=== PATIENT | female | born 1950 | race Caucasian/White ===

== ENCOUNTER → 2019-07-12 09:16 | Outpatient (BNVA) | payer MEDICARE, SELFPAY | PROVIDERS: Family Provider Nurse Practitioner; PCP Nurse Practitioner; Visit Provider Nurse Practitioner | DX: E11.22 Type 2 diabetes mellitus with diabetic chronic kidney disease (principal) | CPT/HCPCS: 80053; 80061; 83036 ==

== ENCOUNTER → 2019-11-13 08:30 | Outpatient (BNVA) | payer MEDICARE, MEDICAID, SELFPAY | PROVIDERS: Family Provider Nurse Practitioner; PCP Nurse Practitioner; Visit Provider Nurse Practitioner | DX: E11.22 Type 2 diabetes mellitus with diabetic chronic kidney disease (principal); I10 Essential (primary) hypertension; E78.2 Mixed hyperlipidemia | CPT/HCPCS: 80053; 80061; 83036 ==

== ENCOUNTER 2019-11-14 07:49 | Outpatient (CLI) | payer MEDICARE, MEDICAID, SELFPAY ==
--- NOTE | 2019-11-14 07:55 | MM_ITS ---
WS: [id number] BILATERAL DIGITAL SCREENING MAMMOGRAPHY WITH CAD CLINICAL INFORMATION: SCREENING HISTORY: Screening mammogram. No current complaints. COMPARISON: . TECHNIQUE: Bilateral CC and MLO views. FINDINGS: Stable dystrophic calcifications left breast. Stable punctate calcifications. Stable asymmetric breas t tissue upper outer right breast Increased slightly spiculated asymmetric breast tissue upper outer LEFT breast. RECOMMEND SPOT COMPRE SSION VIEWS AND ULTRASOUND IF PERSISTENT. MM/[id number] IMPRESSION: BI-RADS: 0-Incomplete: Need additional imaging evaluation FOLLOW UP: Need Additional Imaging
== END 2019-11-14 07:50 | disposition home or self-care (01) ==
LOC: RADSHAW 07:52
PROVIDERS: PCP Nurse Practitioner; Visit Provider Nurse Practitioner
DX: Z12.31 Encounter for screening mammogram for malignant neoplasm of breast (principal); R92.1 Mammographic calcification found on diagnostic imaging of breast; N64.89 Other specified disorders of breast
CPT/HCPCS: 77067

== ENCOUNTER 2019-11-22 07:25 | Outpatient (CLI) | payer MEDICARE, MEDICAID, SELFPAY ==
--- NOTE | 2019-11-22 07:31 | US_ITS ---
WS: [id number] LEFT DIGITAL MAMMOGRAPHY WITH CAD CLINICAL INFORMATION: abnormal mammo TECHNIQUE: 3 views of the left breast were obtained. FINDINGS: Scattered fibroglandular densities of the left breast. Stable asymmetric breast tissue upper outer le ft breast. Ultrasound is pending. ULTRASOUND BREAST LEFT TECHNIQUE: Ultrasound left breast focused area of concern. CLINICAL INFORMATION: abnormal mammo COMPARISON: None. FINDINGS: Ultrasound left breast at the 12 to 3:00 position. Dense parenchymal tissue. A few tiny incidental cy sts. Small well-circumscribed hypoechoic lesion at the areola is nonspecific but probably benign. Thi s lesion measures 3.7 x 2.1 x 5.0 mm. RECOMMEND 6 MONTH FOLLOW-UP LEFT DIAGNOSTIC MAMMOGRAPHY AND ULTRASOUND. US/US breast LT limited* [id number] IMPRESSION: BI-RADS: 3-Probably Benign FOLLOW UP: 6 Month Follow-up
== END 2019-11-22 07:26 | disposition home or self-care (01) ==
LOC: RADSHAW 07:27
PROVIDERS: PCP Nurse Practitioner; Visit Provider Nurse Practitioner
DX: R92.8 Other abnormal and inconclusive findings on diagnostic imaging of breast (principal); N64.89 Other specified disorders of breast
CPT/HCPCS: 76642; 77065

== ENCOUNTER → 2020-01-12 08:19 | Outpatient (BNVA) | payer MEDICARE, MEDICAID, SELFPAY | PROVIDERS: PCP Nurse Practitioner; Visit Provider Nurse Practitioner Family | DX: Z11.59 Encounter for screening for other viral diseases (principal) | CPT/HCPCS: 87635 ==

== ENCOUNTER → 2020-02-19 08:25 | Outpatient (BNVA) | payer MEDICARE, MEDICAID, SELFPAY | PROVIDERS: PCP Nurse Practitioner; Visit Provider Nurse Practitioner | DX: E11.22 Type 2 diabetes mellitus with diabetic chronic kidney disease (principal); N18.9 Chronic kidney disease, unspecified; E78.2 Mixed hyperlipidemia; I10 Essential (primary) hypertension | CPT/HCPCS: 80053; 81000; 83036 ==

== ENCOUNTER 2020-05-20 07:55 | Outpatient (CLI) | payer MEDICARE, MEDICAID, SELFPAY ==
--- NOTE | 2020-05-20 09:00 | MM_ITS ---
WS: [id number] DIAGNOSTIC LEFT DIGITAL MAMMOGRAM WITH CAD LEFT breast ultrasound, limited HISTORY: abnormal mammo COMPARISON: 11/22/2019, 11/14/2019, 11/04/2018 and 11/03/2017 Technique: CC, MLO and ML views. Spot compression LEFT MLO and LEFT MLO. Breast composition: There are scattered areas of fibroglandular density. The asymmetry noted on the prior examination is no longer present. Benign calcifications. LEFT breast ultrasound, limited. Less than 2 mm cyst at 12:00 with no change. Benign shadowing calcifications at 1:00. Additional francisco javier gn calcification at 1:00 2 cm from the nipple. There is a small cyst which is stable measuring 3 x 2 x 4 mm at 3:00, 3 cm from the nipple. MM/[id number] IMPRESSION: BI-RADS: 2-Benign FOLLOW UP: 6 Month Follow-up Patient should return to annual screening mammogram. Annual mammogram should re sume in November 2020.
== END 2020-05-20 07:56 | disposition home or self-care (01) ==
LOC: RADSHAW 07:56
PROVIDERS: PCP Nurse Practitioner; Visit Provider Nurse Practitioner
DX: R92.8 Other abnormal and inconclusive findings on diagnostic imaging of breast (principal)
CPT/HCPCS: 76642; 77065

== ENCOUNTER → 2020-06-04 08:28 | Outpatient (BNVA) | payer MEDICARE, MEDICAID, SELFPAY | PROVIDERS: PCP Nurse Practitioner; Visit Provider Nurse Practitioner | DX: E11.22 Type 2 diabetes mellitus with diabetic chronic kidney disease (principal); I10 Essential (primary) hypertension; E78.2 Mixed hyperlipidemia | CPT/HCPCS: 80053; 80061; 81000; 83036 ==

== ENCOUNTER → 2020-09-11 08:36 | Outpatient (BNVA) | payer MEDICARE, MEDICAID, SELFPAY | PROVIDERS: PCP Nurse Practitioner; Visit Provider Nurse Practitioner | DX: E11.22 Type 2 diabetes mellitus with diabetic chronic kidney disease (principal); I10 Essential (primary) hypertension; E78.2 Mixed hyperlipidemia; K59.01 Slow transit constipation | CPT/HCPCS: 80053; 83036 ==

== ENCOUNTER 2020-12-11 07:45 | Outpatient (CLI) | payer MEDICARE, MEDICAID, SELFPAY ==
--- NOTE | 2020-12-11 07:51 | MM_ITS ---
WS: [id number] BILATERAL DIGITAL SCREENING MAMMOGRAPHY WITH CAD CLINICAL INFORMATION: SCREENING HISTORY: Screening mammogram. No current complaints. COMPARISON: May 20, 2020 TECHNIQUE: Bilateral CC and MLO views. FINDINGS: Scattered fibroglandular densities bilaterally. Punctate and coarse calcifications left breast. No beal spicious focal mass, asymmetry, calcifications, or architectural distortion. No evidence of malignanc y. MM/[id number] IMPRESSION: BI-RADS: 2-Benign FOLLOW UP: 1 Year Follow-up Recommend return to annual screening mammography.
== END 2020-12-11 07:46 | disposition home or self-care (01) ==
LOC: RADSHAW 07:50
PROVIDERS: PCP Nurse Practitioner; Visit Provider Nurse Practitioner
DX: Z12.31 Encounter for screening mammogram for malignant neoplasm of breast (principal)
CPT/HCPCS: 77067

== ENCOUNTER → 2020-12-13 08:28 | Outpatient (BNVA) | payer MEDICARE, MEDICAID, SELFPAY | PROVIDERS: PCP Nurse Practitioner; Visit Provider Nurse Practitioner | DX: E11.22 Type 2 diabetes mellitus with diabetic chronic kidney disease (principal); I12.9 Hypertensive chronic kidney disease with stage 1 through stage 4 chronic kidney disease, or unspecified chronic kidney disease; K59.01 Slow transit constipation; L30.9 Dermatitis, unspecified; E78.2 Mixed hyperlipidemia; N18.9 Chronic kidney disease, unspecified | CPT/HCPCS: 80053; 81000; 83036 ==

== ENCOUNTER → 2021-02-24 10:14 | Outpatient (BNVA) | payer MEDICARE, MEDICAID, SELFPAY | PROVIDERS: PCP Nurse Practitioner; Visit Provider Nurse Practitioner Family | DX: Z20.822 Contact with and (suspected) exposure to COVID-19 (principal) | CPT/HCPCS: 87635 ==

== ENCOUNTER → 2021-03-14 08:47 | Outpatient (BNVA) | payer MEDICARE, MEDICAID, SELFPAY | PROVIDERS: PCP Nurse Practitioner; Visit Provider Nurse Practitioner | DX: E11.22 Type 2 diabetes mellitus with diabetic chronic kidney disease (principal); I12.9 Hypertensive chronic kidney disease with stage 1 through stage 4 chronic kidney disease, or unspecified chronic kidney disease; N18.2 Chronic kidney disease, stage 2 (mild); Z79.4 Long term (current) use of insulin | CPT/HCPCS: 80053; 81000; 83036 ==

== ENCOUNTER 2021-04-23 19:58 | Emergency (ER) | payer MEDICARE, MEDICAID, SELFPAY ==
[2021-04-23 20:13] VITALS: BP 167/77; PULSE 76; RESP 18; TEMP 36.6; O2SAT 97; BMI 40.2
[2021-04-23 20:53] LABS: Add Urine Microscopic? YES; Bilirubin Urine Neg (Negative); Blood Urine 3+ (Negative); Glucose Urine UA 4+ (Normal); Ketones Urine Negative (Negative); Leukocyte Esterase Urine Negative (Negative); Nitrate Urine Negative (Negative); Protein Urine Neg (Negative); Specific Gravity, Urine 1.005 (1.005-1.030); Urine Appearance Clear (CLEAR); Urine Color Yellow (Yellow); Urobilinogen Urine Norm (Negative); pH Urine 5 (5-7)
[2021-04-23 20:54] LABS: Add Urine Culture? Yes; RBC Urine 15-25 /hpf (0-2); Squamous Epithelial Cell Urine 0-4 /hpf (0-5)
[2021-04-23 21:45] LABS: Basophils % 0.4 %; Eosinophils # 0.3 10^3/uL (0.0-0.8); Eosinophils % 3.5 %; Hematocrit 38.8 % (37.0-47.0); Hemoglobin 12.8 g/dL (11.5-15.3); Lymphocytes # 2.4 10^3/uL (0.8-4.8); Lymphocytes % 26.6 %; Mean Corpuscular Volume 91.1 fl (81-99); Mean Platelet Volume 9.6 fL (7.4-10.4); Monocytes # 0.6 10^3/uL (0.2-0.9); Neutrophils # 5.59 10^3/uL (1.8-7.7); Neutrophils % 62.3 %; Nucleated Red Blood Cells % 0 %; Platelet Count 142 10^3/cmm (130-400); Red Blood Count 4.26 10^6/uL (4.1-5.3); Red Cell Distribution Width 13.2 % (12.1-15.1)
--- NOTE | 2021-04-23 21:46 | W.ED.FEMALGU ---
HPI - Female Genitourinary General: Chief complaint: Urogenital-Female Stated complaint: UTI- Urinating Blood Time Seen by Provider: 04/23/21 21:43 History of Present Illness: HPI Narrative: 70-year-old female comes in with complaints of painful urination. Patient reports that she started having some discomfort this afternoon about 2:00. Since then she has become more uncomfortable to pee and she noticed a little blood when she wiped. Patient appears well. Patient appears in some mild to moderate pain. Review of Systems General: Reports: 10 or more systems reviewed and unremarkable except in HPI and below : Reports: dysuria and urinary frequency PFSH ED PFSH: Medical History Chronic knee pain Gout HTN, goal below 130/80 Mixed hyperlipidemia 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 Surgical History History of ankle surgery right Family History Other Cancer Diabetes Heart disease Hypertension Social History Second hand smoke exposure: No Smoking risk assessment/counseling performed?: No Alcohol intake: never Desire information about alcohol rehabilitation?: No Counseling given: No Desire information about substance/drug rehabilitation?: No Counseling given: No Adopted: No Caregiver/support person: No Lives independently: Yes Household members: none Housing: House Marital status: / service: No Current occupational status: retired History of recent travel: No Current gender identity: Female Physical Exam Const: COMMON NORMALS: patient oriented x3 GENERAL APPEARANCE: cooperative and well kempt HENMT: COMMON NORMALS: normocephalic HEAD & SCALP: normocephalic Eye: COMMON NORMALS: Equal, round and reactive pupils present and EOMs intact bilaterally PUPIL: Yes Equal, round and reactive pupils present Neck/C-Spine: COMMON NORMALS: full ROM Resp: COMMON NORMALS: normal respiratory effort and clear to auscultation bilaterally AUSCULTATION: clear to auscultation bilaterally Cardio: COMMON NORMALS: regular rate and regular rhythm RATE: regular rate RHYTHM: regular rhythm GI: COMMON NORMALS: Soft to palpation AUSCULTATION: Yes normoactive bowel sounds PALPATION: Yes Soft to palpation and No Tenderness to palpation present (GI) : COMMON NORMALS: Yes no CVA tenderness BLADDER/KIDNEY EXAM: Yes no CVA tenderness Back/Pelvis: COMMON NORMALS: no CVA tenderness Neuro: COMMON NORMALS: patient oriented x3 Psych: COMMON NORMALS: cooperative APPEARANCE: Yes well kempt Course Vital Signs: Vital signs: Vital Signs Temperature 98.0 F 04/23/21 22:18 Pulse Rate 78 04/23/21 22:18 Respiratory Rate 18 04/23/21 22:18 Blood Pressure 159/72 04/23/21 22:18 Pulse Oximetry 98 04/23/21 22:18 MDM - Female MDM Narrative: Medical decision making narrative: 70-year-old female comes in today with complaints of urinary difficulty starting about 2:00 this afternoon. Patient reports painful urination. On exam abdomen soft normal active bowel sounds. Patient does have some suprapubic tenderness. No CVA tenderness. Skin is warm and dry. Vital signs are normal. Differential diagnosis includes cystitis, pyelonephritis, vaginitis. Urinalysis noted some increased red blood cells and white blood cells although it was a contaminated specimen with some squamous cells but a low number. CBC and CMP were unremarkable when compared to past labs. Urine culture was sent. Patient was given 1 g of ceftriaxone and 200 mg of Pyridium. Patient be continued on cephalexin for the next 7 days and Pyridium for the next 6 doses. Patient reported understanding of care plan and need for follow-up or return to the ER. Lab Data: Labs: Lab Results 04/23/21 04/23/21 04/23/21 20:25 21:35 21:35 WBC 9.0 10^3/uL 10^3/ uL (4.0-10.0) RBC 4.26 10^6/uL 10^6 /uL (4.1-5.3) Hgb 12.8 g/dL g/dL (11.5-15.3) Hct 38.8 % % (37.0-47.0) MCV 91.1 fl fl (81-99) MCH 30.0 pg pg (28.0-34.0) MCHC 33.0 g/dL g/dL (30.0-36.0) RDW 13.2 % % (12.1-15.1) Plt Count 142 10^3/cmm 10^3 /cmm (130-400) MPV 9.6 fL fL (7.4-10.4) Neut % (Auto) 62.3 % % Lymph % (Auto) 26.6 % % Gove % (Auto) 7.0 % % Eos % (Auto) 3.5 % % Baso % (Auto) 0.4 % % Neut # (Auto) 5.59 10^3/uL 10^3 /uL (1.8-7.7) Lymph # (Auto) 2.4 10^3/uL 10^3/ uL (0.8-4.8) Gove # (Auto) 0.6 10^3/uL 10^3/ uL (0.2-0.9) Eos # (Auto) 0.3 10^3/uL 10^3/ uL (0.0-0.8) Baso # (Auto) 0.0 10^3/uL 10^3/ uL (0.0-0.1) Nucleated RBC % (a uto) 0 % % Nucleated RBCs # 0.0 /100WBC /100W BC Sodium 139 mmol/L mmol/L (136-145) Potassium 4.3 mmol/L mmol/L (3.5-5.1) Chloride 100 mmol/L mmol/L (98-107) Carbon Dioxide 27 mmol/L mmol/L (22-29) Anion Gap 16.3 (5-19) BUN 26 mg/dL H mg/dL (8-23) Creatinine 1.0 mg/dL H mg/dL (0.5-0.9) GFR Calculation 54.8 mL/min L mL/ min (90-130) Glucose 159 mg/dL H mg/dL (65-115) Calculated Osmolal ity 296 mOsm/kg H mOs m/kg (285-295) Calcium 9.6 mg/dL mg/dL (8.5-10.5) Urine Color Yellow (Yellow) Urine Appearance Clear (CLEAR) Urine pH 5 (5-7) Ur Specific Gravit y 1.005 (1.005-1.030) Urine Protein Neg (Negative) Urine Glucose (UA) 4+ H (Normal) Urine Ketones Negative (Negative) Urine Blood 3+ H (Negative) Urine Nitrate Negative (Negative) Urine Bilirubin Neg (Negative) Urine Urobilinogen Norm mg/dL mg/dL (Negative) Ur Leukocyte Eve ase Negative (Negative) Urine RBC 15-25 /hpf H /hpf (0-2) Urine WBC 5-10 /hpf H /hpf (0-5) Ur Squamous Epith Cells 0-4 /hpf H /hpf (0-5) Amorphous Sediment Not Reportable Urine Bacteria None /hpf /hpf (NONE) Discharge Plan Discharge Patient Disposition: Home Clinical Impression: Urinary tract infection Qualifiers: Urinary tract infection type: acute cystitis Hematuria presence: with hematuria Qualified Code(s): N30.01 - Acute cystitis with hematuria Condition: Stable Prescriptions: New cephalexin 500 mg capsule 500 mg PO TID 7 Days Qty: 21 RF: 0 phenazopyridine 200 mg tablet 200 mg PO Q8H Qty: 6 RF: 0 No Action aspirin 81 mg tablet,delayed release (DR/EC) 81 mg PO .on MWF Qty: 30 RF: 0 polyethylene glycol 3350 [Miralax] 17 gram/dose powder 17 g PO DAILY Qty: 510 RF: 2 lisinopril 20 mg tablet 20 mg PO BID Qty: 180 RF: 1 rosuvastatin [Crestor] 10 mg tablet 10 mg PO DAILY Qty: 90 RF: 1 chlorthalidone 25 mg tablet 25 mg PO DAILY Qty: 90 RF: 0 atenolol 50 mg tablet 50 mg PO BID Qty: 180 RF: 1 Farxiga 5 mg tablet 5 mg PO QAM Qty: 90 RF: 1 triamcinolone acetonide 0.1 % ointment 1 applic topical BID PRN (Reason: itching) Qty: 80 RF: 2 Soliqua 100/33 100 unit-33 mcg/mL insulin pen See Rx Instructions SUBCUT QAM Qty: 45 RF: 2 (DME) pen needle, diabetic 33 gauge x 5/32 needle See Rx Instructions .ROUTE .MEDSUPPLY Qty: 100 RF: 5 Discharge Orders: Discharge ED (Routine); Ordered 04/23/21 Ordered By: Yosi Rudolph Referrals: Edgardo Martinez, KITCHEN WORKER-C [Primary Care Provider] - Discharge Diet: Usual diet Discharge Activity: Increase activity as tolerated Patient Instructions: Urinary Tract Infection in Women (ED) Activity Restrictions/Additional Instructions: PriorDrink plenty of water. Take antibiotic as directed for the next 5 to 7 days. Merry care in 1 week for recheck. Return to the ER for worsening symptoms such as high fever greater than 100.4, nausea vomiting, blood in vomit or stool. Coding Level of Care Code ED Director Corporate Communications for Ajay Fwd Exam Comprehensive
[2021-04-23 22:02] LABS: Anion Gap 16.3 (5-19); Blood Urea Nitrogen 26 mg/dL (8-23); Calcium 9.6 mg/dL (8.5-10.5); Carbon Dioxide 27 mmol/L (22-29); Chloride 100 mmol/L (98-107); Creatinine Clr Calc Pharmacy 62.2674; Glomerular Filtration Rate 54.8 mL/min (90-130); Glucose 159 mg/dL (65-115); Osmolality Calculated 296 mOsm/kg (285-295); Potassium 4.3 mmol/L (3.5-5.1); Sodium 139 mmol/L (136-145)
[2021-04-23 22:18] VITALS: BP 159/72; PULSE 78; RESP 18; TEMP 36.7; O2SAT 98
== END 2021-04-23 22:20 | disposition home or self-care (01) ==
PROVIDERS: Emergency Provider Nurse Practitioner Family; PCP Nurse Practitioner
DX: N30.01 Acute cystitis with hematuria (principal); Z79.82 Long term (current) use of aspirin; E78.2 Mixed hyperlipidemia; E11.22 Type 2 diabetes mellitus with diabetic chronic kidney disease; I12.9 Hypertensive chronic kidney disease with stage 1 through stage 4 chronic kidney disease, or unspecified chronic kidney disease; N18.9 Chronic kidney disease, unspecified
CPT/HCPCS: 80048; 81001; 85025; 87086; 99283

== ENCOUNTER → 2021-06-10 08:34 | Outpatient (BNVA) | payer MEDICARE, MEDICAID, SELFPAY | PROVIDERS: PCP Nurse Practitioner; Visit Provider Nurse Practitioner | DX: I10 Essential (primary) hypertension (principal); E11.22 Type 2 diabetes mellitus with diabetic chronic kidney disease; K59.01 Slow transit constipation; E78.2 Mixed hyperlipidemia; N18.2 Chronic kidney disease, stage 2 (mild); Z79.4 Long term (current) use of insulin; M10.9 Gout, unspecified | CPT/HCPCS: 80053; 80061; 81000; 83036; 84550; 86592; 87491; 87591; 87806 ==

== ENCOUNTER → 2021-09-10 08:25 | Outpatient (BNVA) | payer MEDICARE, MEDICAID, SELFPAY | PROVIDERS: PCP Nurse Practitioner; Visit Provider Nurse Practitioner | DX: E11.22 Type 2 diabetes mellitus with diabetic chronic kidney disease (principal); N18.2 Chronic kidney disease, stage 2 (mild); Z79.4 Long term (current) use of insulin; K59.01 Slow transit constipation; I10 Essential (primary) hypertension; E78.2 Mixed hyperlipidemia; M10.9 Gout, unspecified | CPT/HCPCS: 80053; 81000; 83036 ==

== ENCOUNTER → 2021-09-22 08:00 | Outpatient (BNVA) | payer MEDICARE, MEDICAID, SELFPAY | PROVIDERS: PCP Nurse Practitioner; Visit Provider Nurse Practitioner | DX: R30.0 Dysuria (principal) | CPT/HCPCS: 81000 ==

== ENCOUNTER → 2021-12-11 08:37 | Outpatient (BNVA) | payer MEDICARE, MEDICAID, SELFPAY | PROVIDERS: PCP Nurse Practitioner; Visit Provider Nurse Practitioner | DX: E11.22 Type 2 diabetes mellitus with diabetic chronic kidney disease (principal); I10 Essential (primary) hypertension; N18.2 Chronic kidney disease, stage 2 (mild); Z79.4 Long term (current) use of insulin; E78.2 Mixed hyperlipidemia; M10.9 Gout, unspecified; L30.9 Dermatitis, unspecified | CPT/HCPCS: 80053; 80061; 81000; 83036; 84550 ==

== ENCOUNTER 2021-12-12 09:03 | Outpatient (CLI) | payer MEDICARE, MEDICAID, SELFPAY ==
--- NOTE | 2021-12-12 09:15 | MM_ITS ---
WS: [id number] VIEWS: MLO and CC views both breasts. 3D digital tomosynthesis is also included in this exam. Comparison made with prior exam of 11/03/2017, 11/04/2018, 11/14/2019, 12/11/2020.. Findings: There was no sign of mass, architectural distortion or suspicious calcification in either breast. Sc attered fibroglandular densities MM/[place] [id number] Impression: BI-RADS: 2-Benign FOLLOW-UP: 1 Year Follow-up This mammogram was also analyzed by the Computer Aided Detection System R2 Imag e Workers Compensation Specialist.
== END 2021-12-12 09:04 | disposition home or self-care (01) ==
LOC: RAD 09:03
PROVIDERS: PCP Nurse Practitioner; Visit Provider Nurse Practitioner
DX: Z12.31 Encounter for screening mammogram for malignant neoplasm of breast (principal)
CPT/HCPCS: 77063; 77067

== ENCOUNTER 2021-12-28 07:35 | Emergency (ER) | payer MEDICARE, MEDICAID, SELFPAY ==
--- NOTE | 2021-12-28 07:37 | XRR_ITS ---
PROCEDURE INFORMATION: Exam: XR Chest Exam date and time: 12/28/2021 8:36 AM Age: 71 years old Clinical indication: Pain; Angina pectoris; Additional info: Cp TECHNIQUE: Imaging protocol: Radiologic exam of the chest. Views: 1 view. COMPARISON: CR XR cervical spine 3V* [id number] 07/09/2016 10:24 AM FINDINGS: Lungs: Unremarkable. No consolidation. Pleural spaces: Unremarkable. No pleural effusion. No pneumothorax. Heart/Mediastinum: Unremarkable. No cardiomegaly. Bones/joints: Degenerative changes of the spine seen. XR/XR chest 1V portable [id number] IMPRESSION: No acute findings.
[2021-12-28 07:39] VITALS: BP 190/72; PULSE 75; RESP 14; TEMP 36.4; O2SAT 95; BMI 39.8
--- NOTE | 2021-12-28 07:45 | ECG_ITS ---
[facility] Test Date: 2021-12-28 Pat Name: Stephenie Pineda Department: Room: Gender: Female Livestock Counter: : [id number] Requested By: Carrie Greene Order Number: [id number] Reginald MD: Fermin Spence M.D. Measurements Intervals Mcbee Rate: 71 P: 14 KS: 164 QRS: 14 QRSD: 82 T: 47 QT: 377 QTc: 412 Interpretive Statements SINUS RHYTHM LOW QRS VOLTAGE IN PRECORDIAL LEADS [QRS DEFLECTION < 1.0 mV IN CHEST LEADS] No previous ECG available for comparison Electronically Signed On 12-28-2021 8:37:25 CDT by Fermin Spence M.D. [email or web address]
--- NOTE | 2021-12-28 08:22 | W.ED.URI ---
HPI - URI/Sore Throat General: Chief Complaint: Upper Respiratory Infection Stated Complaint: chest pain Time Seen by Provider: 12/28/21 07:38 Source: patient Mode of arrival: ambulatory Limitations: no limitations History of Present Illness: 71-year-old female states she been having a cough over the last 2 weeks. States she gets a walking pneumonia every year at this time she states it typically resolves on her own states that she had some burning in her chest she states her cough is actually improved she has had no pain or shortness of breath and states that burning sensation stopped a week ago states she had a coughing fit yesterday though and coughed up some dark mucus and looked bloody and that concerned her. She is currently here in no distress denies any worsening improving factors. Associated symptoms: Reports diarrhea, nausea and vomiting; Deny chills, chest pain, fever(s) or headache(s) Review of Systems Const: Denies: fever(s), chills, body aches or change in appetite Eyes: Denies: blurry vision or eye discomfort ENMT: Denies: throat pain or dental pain Card: Denies: chest pain Resp: Denies: dyspnea GI: Reports: nausea, vomiting and diarrhea : Denies: dysuria Musc: Denies: neck pain or back pain Skin/Breast: Denies: rash Neuro: Denies: headache(s) Psych: Denies: depression Gatito/Lymph: Denies: easy bruising All/Imm: Denies: urticaria PFSH ED PFSH: Medical History Chronic knee pain Gout HTN, goal below 130/80 Mixed hyperlipidemia 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 Surgical History History of ankle surgery right Family History Other Cancer Diabetes Heart disease Hypertension Social History Smoking and tobacco status: former smoker Second hand smoke exposure: No Smoking risk assessment/counseling performed?: No Alcohol intake: never Desire information about alcohol rehabilitation?: No Counseling given: No Desire information about substance/drug rehabilitation?: No Counseling given: No Adopted: No Caregiver/support person: No Lives independently: Yes Household members: none Housing: House Marital status: / service: No Current occupational status: retired History of recent travel: No Current gender identity: Female Physical Exam Const: COMMON NORMALS: no acute distress, patient oriented x3 and healthy appearing HENMT: COMMON NORMALS: normocephalic and atraumatic HEAD & SCALP: normocephalic and atraumatic Eye: COMMON NORMALS: Equal, round and reactive pupils present and EOMs intact bilaterally PUPIL: Yes Equal, round and reactive pupils present Neck/C-Spine: COMMON NORMALS: full ROM and supple Chest: COMMONS NORMALS: normal inspection of the chest and normal palpation of entire chest wall Resp: COMMON NORMALS: normal respiratory effort, No retractions, No use of accessory muscles and clear to auscultation bilaterally AUSCULTATION: clear to auscultation bilaterally Cardio: COMMON NORMALS: regular rate, regular rhythm and No murmurs present (Cardio) RATE: regular rate RHYTHM: regular rhythm GI: COMMON NORMALS: Normal to inspection, nondistended, normoactive bowel sounds present, Soft to palpation, non-tender and no masses PALPATION: Yes Soft to palpation Extremity: COMMON NORMALS: normal to inspection and full ROM Neuro: COMMON NORMALS: patient oriented x3, moves all extremities and no focal motor deficits Psych: COMMON NORMALS: mental status grossly normal, Normal thought process present and cooperative THOUGHT PROCESS: Normal thought process present Skin: COMMON NORMALS: no rashes or lesions noted and no wounds GENERAL SKIN EXAM: no rashes or lesions noted Course Vital Signs: Vital signs: Vital Signs Temperature 97.6 F 12/28/21 07:39 Pulse Rate 75 12/28/21 07:39 Respiratory Rate 14 12/28/21 07:39 Blood Pressure 190/72 12/28/21 07:39 Pulse Oximetry 95 12/28/21 07:39 Oxygen Delivery Me thod 12/28/21 07:39 MDM - URI/Sore Throat Medical Decision Making Patient presents here with upper respiratory infection likely causing her hemoptysis she been well-appearing here she has no signs of severe pneumonia she has no signs of pulmonary embolism blood work here is normal we will start her on doxycycline she is to follow-up with PCP and return if worsening she understands agrees to plan. Lab Data : 12/28/21 08:25 12/28/21 08:30 Radiology Impressions Chest X-Ray 12/28/21 07:37 IMPRESSION: No acute findings. Laboratory Results WBC 8.0 10^3/uL (4.0-10.0) 12/28/21 08:25 RBC 4.28 10^6/uL (4.1-5.3) 12/28/21 08:25 Hgb 12.9 g/dL (11.5-15.3) 12/28/21 08:25 Hct 39.7 % (37.0-47.0) 12/28/21 08:25 MCV 92.8 fl (81-99) 12/28/21 08:25 MCH 30.1 pg (28.0-34.0) 12/28/21 08:25 MCHC 32.5 g/dL (30.0-36.0) 12/28/21 08:25 RDW 13.2 % (12.1-15.1) 12/28/21 08:25 Plt Count 144 10^3/cmm (130-400) 12/28/21 08:25 MPV 9.9 fL (7.4-10.4) 12/28/21 08:25 Neut % (Auto) 58.9 % 12/28/21 08:25 Lymph % (Auto) 28.7 % 12/28/21 08:25 Johnson % (Auto) 7.0 % 12/28/21 08:25 Eos % (Auto) 4.7 % 12/28/21 08:25 Baso % (Auto) 0.5 % 12/28/21 08:25 Neut # (Auto) 4.71 10^3/uL (1.8-7.7) 12/28/21 08:25 Lymph # (Auto) 2.3 10^3/uL (0.8-4.8) 12/28/21 08:25 Johnson # (Auto) 0.6 10^3/uL (0.2-0.9) 12/28/21 08:25 Eos # (Auto) 0.4 10^3/uL (0.0-0.8) 12/28/21 08:25 Baso # (Auto) 0.0 10^3/uL (0.0-0.1) 12/28/21 08:25 Nucleated RBC % (auto) 0 % 12/28/21 08:25 Nucleated RBCs # 0.0 /100WBC 12/28/21 08:25 Sodium 141 mmol/L (136-145) 12/28/21 08:30 Potassium 4.9 mmol/L (3.5-5.1) 12/28/21 08:30 Chloride 102 mmol/L (98-107) 12/28/21 08:30 Carbon Dioxide 29 mmol/L (22-29) 12/28/21 08:30 Anion Gap 14.9 (5-19) 12/28/21 08:30 BUN 33 mg/dL (8-23) H 12/28/21 08:30 Creatinine 1.2 mg/dL (0.5-0.9) H 12/28/21 08:30 GFR Calculation Not Reportable 12/28/21 08:30 Glucose 135 mg/dL (65-115) H 12/28/21 08:30 Calculated Osmolality 301 mOsm/kg (285-295) H 12/28/21 08:30 Calcium 10.5 mg/dL (8.5-10.5) 12/28/21 08:30 Total Bilirubin 0.5 mg/dL (0.15-1.2) 12/28/21 08:30 AST 24 U/L (0-32) 12/28/21 08:30 ALT 21 U/L (0-33) 12/28/21 08:30 Alkaline Phosphatase 75 U/L (35-105) 12/28/21 08:30 Total Protein 7.7 g/dL (6.6-8.7) 12/28/21 08:30 Albumin 4.6 g/dL (3.5-5.2) 12/28/21 08:30 Globulin 3.1 g/dL (1.3-4.6) 12/28/21 08:30 EKG Data EKG 1: I personally reviewed and interpreted this EKG as follows: EKG interpretation date: 12/28/21 EKG interpretation time: 07:45 Interpretation: nsr hr [address] or t wave abnormalities qrs 82 qtc 400 Discharge Plan Discharge Patient Disposition: Home Clinical Impression: Hemoptysis Upper respiratory infection Qualifiers: URI type: unspecified URI Qualified Code(s): J06.9 - Acute upper respiratory infection, unspecified Condition: Stable Prescriptions: New doxycycline hyclate 100 mg capsule 100 mg PO BID 7 Days Qty: 14 0RF No Action aspirin 81 mg tablet,delayed release (DR/EC) 81 mg PO .on MWF Qty: 30 0RF polyethylene glycol 3350 [Miralax] 17 gram/dose powder 17 g PO DAILY Qty: 510 2RF atenolol 50 mg tablet 50 mg PO BID Qty: 180 1RF chlorthalidone 25 mg tablet 25 mg PO DAILY Qty: 90 1RF Farxiga 10 mg tablet 10 mg PO QAM Qty: 90 0RF Soliqua 100/33 100 unit-33 mcg/mL insulin pen See Rx Instructions SUBCUT QAM Qty: 45 2RF Rx Instructions: up to 60 units SUBCUT every morning; start 52 units on 01/03/21 lisinopril 20 mg tablet 20 mg PO BID Qty: 180 1RF triamcinolone acetonide 0.1 % ointment 1 applic topical BID PRN (Reason: itching) Qty: 80 2RF Rx Instructions: arms, legs, chest (DME) pen needle, diabetic 33 gauge x 5/32 needle See Rx Instructions .ROUTE .MEDSUPPLY Qty: 100 5RF Rx Instructions: 1 time day rosuvastatin [Crestor] 20 mg tablet 20 mg PO DAILY Qty: 30 2RF Discharge Orders: Discharge ED (Routine); Ordered 12/28/21 Ordered By: Carrie Greene Referrals: Edgardo Martinez, STEEL POURER-C [Primary Care Provider] - Discharge Diet: Advance as tolerated Discharge Activity: Resume usual activity Patient Instructions: Hemoptysis Coding Level of Care Code ED Telephone Lineman for Chg Fwd Exam Comprehensive
[2021-12-28 08:37] LABS: Basophils % 0.5 %; Eosinophils # 0.4 10^3/uL (0.0-0.8); Eosinophils % 4.7 %; Hematocrit 39.7 % (37.0-47.0); Hemoglobin 12.9 g/dL (11.5-15.3); Lymphocytes # 2.3 10^3/uL (0.8-4.8); Lymphocytes % 28.7 %; Mean Corpuscular HGB Conc 32.5 g/dL (30.0-36.0); Mean Corpuscular Hemoglobin 30.1 pg (28.0-34.0); Mean Corpuscular Volume 92.8 fl (81-99); Mean Platelet Volume 9.9 fL (7.4-10.4); Monocytes # 0.6 10^3/uL (0.2-0.9); Neutrophils # 4.71 10^3/uL (1.8-7.7); Neutrophils % 58.9 %; Nucleated Red Blood Cells % 0 %; Platelet Count 144 10^3/cmm (130-400); Red Blood Count 4.28 10^6/uL (4.1-5.3); Red Cell Distribution Width 13.2 % (12.1-15.1)
[2021-12-28 08:59] LABS: Alanine Aminotransferase 21 U/L (0-33); Albumin Level 4.6 g/dL (3.5-5.2); Alkaline Phosphatase 75 U/L (35-105); Anion Gap 14.9 (5-19); Aspartate Amino Transferase 24 U/L (0-32); Blood Urea Nitrogen 33 mg/dL (8-23); Calcium 10.5 mg/dL (8.5-10.5); Carbon Dioxide 29 mmol/L (22-29); Chloride 102 mmol/L (98-107); Globulin 3.1 g/dL (1.3-4.6); Glucose 135 mg/dL (65-115); Osmolality Calculated 301 mOsm/kg (285-295); Potassium 4.9 mmol/L (3.5-5.1); Sodium 141 mmol/L (136-145); Total Bilirubin 0.5 mg/dL (0.15-1.2); Total Protein 7.7 g/dL (6.6-8.7)
== END 2021-12-28 09:37 | disposition home or self-care (01) ==
PROVIDERS: Emergency Provider Emergency Medicine; PCP Nurse Practitioner
DX: R04.2 Hemoptysis (principal); J06.9 Acute upper respiratory infection, unspecified; Z79.82 Long term (current) use of aspirin; Z79.4 Long term (current) use of insulin; E78.2 Mixed hyperlipidemia; E11.22 Type 2 diabetes mellitus with diabetic chronic kidney disease; I12.9 Hypertensive chronic kidney disease with stage 1 through stage 4 chronic kidney disease, or unspecified chronic kidney disease; N18.9 Chronic kidney disease, unspecified; Z87.891 Personal history of nicotine dependence
CPT/HCPCS: 71045; 80053; 85025; 93005; 99285

== ENCOUNTER → 2022-03-13 08:22 | Outpatient (BNVA) | payer MEDICARE, MEDICAID, SELFPAY | PROVIDERS: PCP Nurse Practitioner; Visit Provider Nurse Practitioner | DX: N18.2 Chronic kidney disease, stage 2 (mild) (principal); Z79.4 Long term (current) use of insulin; I10 Essential (primary) hypertension; E78.2 Mixed hyperlipidemia; M10.9 Gout, unspecified; K59.01 Slow transit constipation; L30.9 Dermatitis, unspecified; E11.22 Type 2 diabetes mellitus with diabetic chronic kidney disease | CPT/HCPCS: 80053; 80061; 81000; 83036; 84550 ==

== ENCOUNTER → 2022-04-17 12:21 | Outpatient (BNVA) | payer MEDICARE, MEDICAID, SELFPAY | PROVIDERS: PCP Nurse Practitioner; Visit Provider Nurse Practitioner | DX: L98.9 Disorder of the skin and subcutaneous tissue, unspecified (principal) | CPT/HCPCS: 88304 ==

== ENCOUNTER → 2022-06-11 08:29 | Outpatient (BNVA) | payer MEDICARE, MEDICAID, SELFPAY | PROVIDERS: PCP Nurse Practitioner; Visit Provider Nurse Practitioner | DX: E11.22 Type 2 diabetes mellitus with diabetic chronic kidney disease (principal); N18.2 Chronic kidney disease, stage 2 (mild); Z79.4 Long term (current) use of insulin; I10 Essential (primary) hypertension; E78.2 Mixed hyperlipidemia; K59.01 Slow transit constipation | CPT/HCPCS: 80053; 81000; 82043; 83036 ==

== ENCOUNTER → 2022-09-03 08:37 | Outpatient (BNVA) | payer MEDICARE, MEDICAID, SELFPAY | PROVIDERS: PCP Nurse Practitioner; Visit Provider Nurse Practitioner | DX: E11.22 Type 2 diabetes mellitus with diabetic chronic kidney disease (principal); N18.2 Chronic kidney disease, stage 2 (mild); Z79.4 Long term (current) use of insulin; M10.9 Gout, unspecified | CPT/HCPCS: 80053; 80061; 81000; 82043; 83036; 84443; 84550 ==

== ENCOUNTER → 2022-11-26 07:49 | Outpatient (BNVA) | payer MEDICARE, MEDICAID, SELFPAY | PROVIDERS: PCP Nurse Practitioner; Visit Provider Nurse Practitioner | DX: E11.22 Type 2 diabetes mellitus with diabetic chronic kidney disease (principal); I10 Essential (primary) hypertension; N18.2 Chronic kidney disease, stage 2 (mild); Z79.4 Long term (current) use of insulin; K59.01 Slow transit constipation; E78.2 Mixed hyperlipidemia | CPT/HCPCS: 80053; 81000; 83036; 85025 ==

== ENCOUNTER 2022-12-21 08:09 | Outpatient (CLI) | payer MEDICARE, MEDICAID, SELFPAY ==
--- NOTE | 2022-12-21 08:17 | MM_ITS ---
WS: [id number] BILATERAL SCREENING DIGITAL TOMOSYNTHESIS MAMMOGRAM WITH CAD HISTORY: SCREENING COMPARISON: 12/12/2021, 12/11/2020 Bilateral CC and MLO views with tomosynthesis and synthetic mammography submitted. Computer aided det ection analyzed. Breast composition: There are scattered areas of fibroglandular density. No suspicious masses, microc alcifications or architectural distortion. Benign calcifications and scattered asymmetries within eac h breast. IMPRESSION: MM/[id number] BI-RADS: 2-Benign FOLLOW UP: 1 Year Follow-up
== END 2022-12-21 08:10 | disposition home or self-care (01) ==
PROVIDERS: PCP Nurse Practitioner; Visit Provider Nurse Practitioner
DX: Z12.31 Encounter for screening mammogram for malignant neoplasm of breast (principal)
CPT/HCPCS: 77063; 77067

== ENCOUNTER 2023-02-07 15:05 | Emergency (ER) | payer MEDICARE, MEDICAID, SELFPAY ==
[2023-02-07 15:09] VITALS: BP 160/83; PULSE 82; RESP 17; TEMP 36.4; O2SAT 97; BMI 38.4
--- NOTE | 2023-02-07 15:24 | W.ED.FEMALGU ---
HPI - Female Genitourinary General: Chief complaint: Urogenital-Female Stated complaint: abd pain Time Seen by Provider: 02/07/23 15:23 History of Present Illness: 72-year-old female comes in today with complaints of pelvic pain and dysuria. Patient appears nontoxic. Patient appears no pain at rest. Patient reports a history of recurrent urinary tract infections. Patient has a history of diabetes and hypertension. MD elicited complaint: UTI Pertinent past history: recurrent UTIs Onset (ago): hour(s) Location of symptoms: urethra and pelvis Severity: moderate Quality of pain: sharp Consistency: intermittent Vaginal discharge: none Vaginal bleeding: none Urinary symptoms: Dysuria Exacerbating factors: urination Relieving factors: none Associated symptoms: Reports abdominal pain Treatment prior to arrival: other (AZO) Sexual activity: No Patient : No Review of Systems General: Reports: 10 or more systems reviewed and unremarkable except in HPI and below Card: Denies: chest pain Resp: Denies: dyspnea GI: Reports: abdominal pain : Reports: difficulty voiding Musc: Denies: neck pain or back pain PFSH ED PFSH: Medical History Chronic knee pain Gout HTN, goal below 130/80 Mixed hyperlipidemia 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 Surgical History History of ankle surgery right Family History Other Cancer Diabetes Heart disease Hypertension Social History Smoking and tobacco/nicotine status: former use of tobacco/nicotine Second hand smoke exposure: No Alcohol intake: never Substance/Drug Use: never Adopted: No Caregiver/support person: No Lives independently: Yes Household members: none Housing: House Marital status: / service: No Current occupational status: retired Do you think of yourself as: Straight/Heterosexual Current gender identity: Female Physical Exam Const: COMMON NORMALS: alert HENMT: COMMON NORMALS: normocephalic HEAD & SCALP: normocephalic Neck/C-Spine: COMMON NORMALS: full ROM Resp: COMMON NORMALS: normal respiratory effort and clear to auscultation bilaterally AUSCULTATION: clear to auscultation bilaterally Cardio: COMMON NORMALS: regular rate RATE: regular rate GI: COMMON NORMALS: Soft to palpation PALPATION: Yes Soft to palpation and No Tenderness to palpation present (GI) : COMMON NORMALS: Yes no CVA tenderness BLADDER/KIDNEY EXAM: Yes no CVA tenderness Back/Pelvis: COMMON NORMALS: no CVA tenderness Extremity: COMMON NORMALS: normal to inspection Neuro: SENSORIUM/ORIENTATION: Yes alert Skin: COMMON NORMALS: turgor normal GENERAL SKIN EXAM: turgor normal Course Vital Signs: Vital signs: Vital Signs Temperature 97.6 F 02/07/23 15:09 Pulse Rate 82 02/07/23 15:09 Respiratory Rate 17 02/07/23 15:09 Blood Pressure 160/83 02/07/23 15:09 Pulse Oximetry 97 02/07/23 15:09 Oxygen Delivery Me thod Room Air 02/07/23 15:09 MDM - Female Medical Decision Making 72-year-old female comes in today for complaints of dysuria starting this morning. Patient appears nontoxic. Patient appears in no acute pain. Abdomen soft nontender. No CVA tenderness. Vital signs are normal except for some mild elevation of blood pressure. Differential diagnosis includes but not limited to pelvic organ prolapse, UTI, cystitis, renal calculi, bladder cancer. Urinalysis was positive for white blood cells. We will start patient on Macrobid 100 mg twice a day for 5 days. Patient was given 1 dose of Rocephin in the ER and a dose of Pyridium. Patient reported understanding of care plan and need for follow-up or return to the ER. Lab Data Laboratory Results Urine Color Straw (Yellow) 02/07/23 15:23 Urine Appearance Clear (CLEAR) 02/07/23 15:23 Urine pH 6.5 (5-7) 02/07/23 15:23 Ur Specific [place] 1.005 (1.005-1.030) 02/07/23 15:23 Urine Protein Neg (Negative) 02/07/23 15:23 Urine Glucose (UA) 4+ (Normal) H 02/07/23 15:23 Urine Ketones Negative (Negative) 02/07/23 15:23 Urine Blood 3+ (Negative) H 02/07/23 15:23 Urine Nitrate Negative (Negative) 02/07/23 15:23 Urine Bilirubin Neg (Negative) 02/07/23 15:23 Urine Urobilinogen Norm mg/dL (Negative) 02/07/23 15:23 Ur Leukocyte Esterase 1+ (Negative) H 02/07/23 15:23 Urine RBC 0-4 /hpf (0-2) H 02/07/23 15:23 Urine WBC 15-25 /hpf (0-5) H 02/07/23 15:23 Ur Squamous Epith Cells 0-4 /hpf (0-5) H 02/07/23 15:23 Amorphous Sediment Not Reportable 02/07/23 15:23 Urine Bacteria Trace /hpf (NONE) 02/07/23 15:23 No radiology studies performed this visit Discharge Plan Discharge Patient Disposition: Home Clinical Impression: Urinary tract infection Qualifiers: Urinary tract infection type: acute cystitis Hematuria presence: without hematuria Qualified Code(s): N30.00 - Acute cystitis without hematuria Condition: Stable Prescriptions: New Macrobid 100 mg capsule 100 mg PO BID 5 Days Qty: 10 0RF Rx Instructions: must administer with a meal/food phenazopyridine 200 mg tablet 200 mg PO TID Qty: 6 0RF No Action (DME) pen needle, diabetic 33 gauge x 5/32 needle See Rx Instructions .ROUTE .MEDSUPPLY Qty: 100 5RF Rx Instructions: 1 time day atenolol 50 mg tablet 50 mg PO BID Qty: 180 0RF chlorthalidone 25 mg tablet 25 mg PO DAILY Qty: 90 0RF Farxiga 10 mg tablet 10 mg PO QAM Qty: 90 0RF Soliqua 100/33 100 unit-33 mcg/mL insulin pen See Rx Instructions SUBCUT QAM Qty: 45 2RF Rx Instructions: up to 60 units SUBCUT every morning; lisinopril 20 mg tablet 20 mg PO BID Qty: 180 0RF polyethylene glycol 3350 [Miralax] 17 gram/dose powder 17 g PO DAILY Qty: 510 2RF rosuvastatin [Crestor] 20 mg tablet 20 mg PO DAILY Qty: 90 0RF aspirin 81 mg tablet,delayed release (DR/EC) 81 mg PO .M&F Qty: 30 0RF triamcinolone acetonide 0.1 % ointment 1 applic topical BID PRN (Reason: itching) Qty: 80 2RF Rx Instructions: arms, legs, chest Discharge Orders: Discharge ED (Routine); Ordered 02/07/23 Ordered By: Yosi Rudolph Referrals: Edgardo Martinez FNP-C [Primary Care Provider] - Discharge Diet: Usual diet Discharge Activity: Increase activity as tolerated Patient Instructions: Urinary Tract Infection in Older Adults (ED) Activity Restrictions/Additional Instructions: Continue antibiotics Macrobid 100 mg 2 times a day for 5 days. Use Pyridium 200 mg 3 times a day for 2 days. Follow-up with primary care in 3 to 5 days for recheck. Return to ED for worsening symptoms such as high fever, inability to hold fluids down, or new concerns. Coding Level of Care Code ED Eap Specialist for Ajay Morales
[2023-02-07] MEDS: cefTRIAXone 1,000 MG in water for injection-sterile 2.1 ML 1 MG IM (16:15)
[2023-02-07] MEDS: phenazopyridine 100 mg Tablet 200 MG PO (16:17)
[2023-02-07 16:43] LABS: Bilirubin Urine Neg (Negative); Blood Urine 3+ (Negative); Glucose Urine UA 4+ (Normal); Ketones Urine Negative (Negative); Nitrate Urine Negative (Negative); Protein Urine Neg (Negative); Specific Gravity, Urine 1.005 (1.005-1.030); Urine Appearance Clear (CLEAR); Urine Color Straw (Yellow); Urobilinogen Urine Norm (Negative); pH Urine 6.5 (5-7)
[2023-02-07 16:44] LABS: Add Urine Culture? Yes; Add Urine Microscopic? YES; Bacteria Urine TRACE /hpf; Leukocyte Esterase Urine 1+ (Negative); RBC Urine 0-4 /hpf (0-2); Squamous Epithelial Cell Urine 0-4 /hpf (0-5); WBC Urine 15-25 /hpf (0-5)
== END 2023-02-07 17:11 | disposition home or self-care (01) ==
PROVIDERS: Emergency Provider Nurse Practitioner Family; PCP Nurse Practitioner
DX: N30.00 Acute cystitis without hematuria (principal); Z79.82 Long term (current) use of aspirin; Z87.891 Personal history of nicotine dependence; I10 Essential (primary) hypertension; E78.2 Mixed hyperlipidemia; E11.9 Type 2 diabetes mellitus without complications
CPT/HCPCS: 81001; 87086; 96372; 99284; J0696

== ENCOUNTER → 2023-02-18 08:31 | Outpatient (BNVA) | payer MEDICARE, MEDICAID, SELFPAY | PROVIDERS: PCP Nurse Practitioner; Visit Provider Nurse Practitioner | DX: I10 Essential (primary) hypertension (principal); E11.22 Type 2 diabetes mellitus with diabetic chronic kidney disease; N18.2 Chronic kidney disease, stage 2 (mild); Z79.4 Long term (current) use of insulin; K59.01 Slow transit constipation; E78.2 Mixed hyperlipidemia; N39.0 Urinary tract infection, site not specified | CPT/HCPCS: 80053; 80061; 81000; 83036 ==

== ENCOUNTER → 2023-05-18 08:28 | Outpatient (BNVA) | payer MEDICARE, MEDICAID, SELFPAY | PROVIDERS: PCP Nurse Practitioner; Visit Provider Nurse Practitioner | DX: I10 Essential (primary) hypertension (principal); E11.22 Type 2 diabetes mellitus with diabetic chronic kidney disease; N18.2 Chronic kidney disease, stage 2 (mild); Z79.4 Long term (current) use of insulin; K59.01 Slow transit constipation; E78.2 Mixed hyperlipidemia; E11.9 Type 2 diabetes mellitus without complications | CPT/HCPCS: 80053; 81000; 83036 ==

== ENCOUNTER → 2023-08-11 08:26 | Outpatient (BNVA) | payer MEDICARE, MEDICAID, SELFPAY | PROVIDERS: PCP Nurse Practitioner; Visit Provider Nurse Practitioner | DX: I10 Essential (primary) hypertension (principal); E11.22 Type 2 diabetes mellitus with diabetic chronic kidney disease; N18.2 Chronic kidney disease, stage 2 (mild); Z79.4 Long term (current) use of insulin; E78.2 Mixed hyperlipidemia; K59.01 Slow transit constipation; L30.9 Dermatitis, unspecified; E11.9 Type 2 diabetes mellitus without complications | CPT/HCPCS: 80053; 80061; 81000; 82043; 83036 ==

== ENCOUNTER → 2023-11-11 08:36 | Outpatient (BNVA) | payer MEDICARE, MEDICAID, SELFPAY | PROVIDERS: PCP Nurse Practitioner; Visit Provider Nurse Practitioner | DX: E11.22 Type 2 diabetes mellitus with diabetic chronic kidney disease (principal); N18.2 Chronic kidney disease, stage 2 (mild); Z79.4 Long term (current) use of insulin; E78.2 Mixed hyperlipidemia | CPT/HCPCS: 80053; 80061; 81000; 83036 ==

== ENCOUNTER 2023-12-28 09:38 | Outpatient (CLI) | payer MEDICARE, MEDICAID, SELFPAY ==
--- NOTE | 2023-12-28 09:40 | MM_ITS ---
WS: [id number] BILATERAL 3D TOMOSYNTHESIS DIGITAL SCREENING MAMMOGRAPHY WITH CAD CLINICAL INFORMATION: SCREENING HISTORY: Screening mammogram. No current complaints. COMPARISON: 2022 TECHNIQUE: Bilateral CC and MLO views. FINDINGS: Scattered fibroglandular densities bilaterally. No suspicious focal mass, asymmetry, calcifications, or architectural distortion. No evidence of malignancy. Incidental cluster calcifications similar to previous. Dystrophic calcification LEFT breast is stable. Vascular calcification. MM/MM scr tomosynthesis [id number] IMPRESSION: DENSITY: There are scattered areas of fibroglandular density. BI-RADS: 2 - Benign. FOLLOW UP: 1 Year Follow-up Recommend return to annual screening mammography.
== END 2023-12-28 09:39 | disposition home or self-care (01) ==
LOC: MOBLMAM 09:42
PROVIDERS: PCP Nurse Practitioner; Visit Provider Nurse Practitioner
DX: Z12.31 Encounter for screening mammogram for malignant neoplasm of breast (principal); R92.323 Mammographic fibroglandular density, bilateral breasts; R92.1 Mammographic calcification found on diagnostic imaging of breast
CPT/HCPCS: 77063; 77067

== ENCOUNTER → 2024-02-29 08:43 | Outpatient (BNVA) | payer MEDICARE, MEDICAID, SELFPAY | PROVIDERS: PCP Nurse Practitioner; Visit Provider Nurse Practitioner | DX: E11.22 Type 2 diabetes mellitus with diabetic chronic kidney disease (principal); N18.2 Chronic kidney disease, stage 2 (mild); Z79.4 Long term (current) use of insulin; E78.2 Mixed hyperlipidemia; K59.01 Slow transit constipation | CPT/HCPCS: 80053; 81000; 83036 ==

== ENCOUNTER → 2024-05-09 08:27 | Outpatient (BNVA) | payer MEDICARE, MEDICAID, SELFPAY | PROVIDERS: PCP Nurse Practitioner; Visit Provider Nurse Practitioner | DX: E11.9 Type 2 diabetes mellitus without complications (principal) | CPT/HCPCS: 80053; 80061; 81000; 83036 ==

== ENCOUNTER → 2024-08-10 08:27 | Outpatient (BNVA) | payer MEDICARE, MEDICAID, SELFPAY | PROVIDERS: PCP Nurse Practitioner; Visit Provider Nurse Practitioner | DX: I10 Essential (primary) hypertension (principal); E11.22 Type 2 diabetes mellitus with diabetic chronic kidney disease; N18.2 Chronic kidney disease, stage 2 (mild); Z79.4 Long term (current) use of insulin; Z11.59 Encounter for screening for other viral diseases; E55.9 Vitamin D deficiency, unspecified | CPT/HCPCS: 80053; 80061; 81000; 82043; 82306; 82607; 83036; 84443; 85025; 86705; 86706; 86709; 86803; 87340 ==

== ENCOUNTER → 2024-11-02 08:48 | Outpatient (BNVA) | payer MEDICARE, MEDICAID, SELFPAY | PROVIDERS: PCP Nurse Practitioner; Visit Provider Nurse Practitioner | DX: E03.8 Other specified hypothyroidism (principal); E11.22 Type 2 diabetes mellitus with diabetic chronic kidney disease; N18.2 Chronic kidney disease, stage 2 (mild); Z79.4 Long term (current) use of insulin | CPT/HCPCS: 80053; 81000; 83036; 84443 ==

== ENCOUNTER → 2025-01-08 07:51 | Outpatient (BNVA) | payer MEDICARE, MEDICAID, SELFPAY | PROVIDERS: PCP Nurse Practitioner; Visit Provider Nurse Practitioner | DX: E11.9 Type 2 diabetes mellitus without complications (principal); E78.2 Mixed hyperlipidemia | CPT/HCPCS: 80053; 80061; 81000; 83036 ==

== ENCOUNTER 2025-01-24 08:51 | Outpatient (CLI) | payer MEDICARE, MEDICAID, SELFPAY ==
--- NOTE | 2025-01-24 09:00 | MM_ITS ---
WS: [id number] BILATERAL SCREENING DIGITAL TOMOSYNTHESIS MAMMOGRAM WITH CAD HISTORY: SCREENING COMPARISON: 12/28/2023, 12/12/2021, 12/11/2020 Bilateral CC and MLO views with tomosynthesis and synthetic mammography submitted. Computer aided detection analyzed. Breast composition: There are scattered areas of fibroglandular density. No suspicious masses, microcalcifications or architectural distortion. Focal asymmetry in the upper outer quadrant of the RIGHT breast is stable. Numerous benign-appearing calcifications and arterial calcifications are present. MM/MM scr tomosynthesis [id number] IMPRESSION: BI-RADS: 2 - Benign. FOLLOW UP: 1 Year Follow-up
== END 2025-01-24 08:52 | disposition home or self-care (01) ==
LOC: MOBLMAM 08:54
PROVIDERS: PCP Nurse Practitioner; Visit Provider Nurse Practitioner
DX: Z12.31 Encounter for screening mammogram for malignant neoplasm of breast (principal); R92.323 Mammographic fibroglandular density, bilateral breasts; R92.1 Mammographic calcification found on diagnostic imaging of breast; N64.89 Other specified disorders of breast
CPT/HCPCS: 77063; 77067